=== PATIENT | male | born 1970 | race Caucasian/White ===

== ENCOUNTER 2020-10-26 14:33 | Emergency (ER) | payer OTHER, BC ==
--- NOTE | 2020-10-26 16:33 | ER Document Report ---
ED Medical Screen (RME) - General Chief Complaint: Eye Injury Stated Complaint: EYE BURN Time Seen by Provider: 10/26/20 16:29 Mode of Arrival: Ambulatory Information source: Patient Notes: 50-year-old male was sent over here from primary care after he had eye injury to the left eye. According to the note from the primary care's office he had dropped hot soldering chemicals and metal in his left eye about an hour before they saw him. I have called charge nurse and have sent him back to a room to be seen by another medical provider. I will order eye tray and tetracaine. I have greeted and performed a rapid initial assessment of this patient. A comprehensive ED assessment and evaluation of the patient, analysis of test results and completion of medical decision making process will be conducted by an additional ED providers. - Related Data Allergies/Adverse Reactions: iodine Allergy (Verified 10/26/20 16:30) Physical Exam - Vital signs Vitals: Temp Pulse Resp BP Pulse Ox 98.1 F 73 20 177/88 H 97 10/26/20 15:04 10/26/20 15:04 10/26/20 15:04 10/26/20 15:04 10/26/20 15:04 Course - Vital Signs Vital signs: Temp Pulse Resp BP Pulse Ox 98.1 F 73 20 177/88 H 97 10/26/20 15:04 10/26/20 15:04 10/26/20 15:04 10/26/20 15:04 10/26/20 15:04
[2020-10-26] MEDS ORDERED: TETRACAINE HCL 0.5% OPH SOLN 4 ML OS ONE (16:34)
[2020-10-26] MEDS ORDERED: PROMETHAZINE HCL INJ 25 MG/1 ML VIAL IM ONE (16:36)
[2020-10-26] MEDS ORDERED: HYDROMORPHONE HCL INJ/PF 2 MG/ML AMPULE IM ONE (16:36)
--- NOTE | 2020-10-26 16:54 | ER Document Report ---
ED Eye Complaint - General Chief Complaint: Eye Injury Stated Complaint: EYE BURN Time Seen by Provider: 10/26/20 16:29 Primary Care Provider: KADEEM ANDERSON DO [ACTIVE STAFF] - Follow up as needed Mode of Arrival: Ambulatory Information source: Patient, Relative - Notes: ED Medical Screen ([facility]) - General Chief Complaint: Eye Injury Stated Complaint: EYE BURN Time Seen by Provider: 10/26/20 16:29 Mode of Arrival: Ambulatory Information source: Patient Notes: 50-year-old male was sent over here from primary care after he had eye injury to the left eye. According to the note from the primary care's office he had dropped hot soldering chemicals and metal in his left eye about an hour before they saw him. I have called charge nurse and have sent him back to a room to be seen by another medical provider. I will order eye tray and tetracaine. MYNOTES 50-year-old male arrives by POV driven by his . Around 1230 he was working with copper pipe and flux and hot solder. This accidentally went into his left eye with severe 10 out of 10 pain. His drove him to the ER. I spoke with Kadeem Maciel at 1645 and he advises erythromycin ointment eyepatch pain and nausea medicine and he will see this patient in the office tomorrow morning. Upon arrival to trauma room 2 patient was given tetracaine to left eye with mild pain relief. He was also given right deltoid Dilaudid 1 Phenergan 25 IM. We will write for erythromycin ointment and [place] and Zofran for nausea pain and eye pain. 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 She has seen Dr. Anderson in the past. TRAVEL OUTSIDE OF THE [place] 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 Safety glasses worn: No Contact lenses worn: No Associated symptoms: Pain, Photophobia - Related Data Allergies/Adverse Reactions: iodine Allergy (Verified 10/26/20 16:30) Past Medical History - General Information source: Patient - Social History Smoking Status: Never Smoker Cigarette use (# per day): No Chew tobacco use (# tins/day): No Smoking Education Provided: No Frequency of alcohol use: None Drug Abuse: None Lives with: Family Family History: Reviewed & Not Pertinent Patient has suicidal ideation: No Patient has homicidal ideation: No Review of Systems - Review of Systems Constitutional: No symptoms reported EENT: See HPI, Eye pain Cardiovascular: No symptoms reported Respiratory: No symptoms reported Gastrointestinal: No symptoms reported Genitourinary: No symptoms reported Male Genitourinary: No symptoms reported Musculoskeletal: No symptoms reported Skin: No symptoms reported Hematologic/Lymphatic: No symptoms reported Neurological/Psychological: No symptoms reported Physical Exam - Vital signs Vitals: Temp Pulse Resp BP Pulse Ox 98.1 F 73 20 177/88 H 97 10/26/20 15:04 10/26/20 15:04 10/26/20 15:04 10/26/20 15:04 10/26/20 15:04 Interpretation: Normal - General General appearance: Appears well, Alert - HEENT Head: Normocephalic Eyes: Periorbital edema, Tears, Other - Left eye very injected and positive photophobia with tearing and large amount of pain. Conjunctiva: Injected - Left conjunctiva and sclera with injection. Patient received tetracaine and black light to observe a 3/4 to 1 cm diameter burn to the cornea around 5 6 and 7:00 iris area. Pupils: PERRL - Respiratory Respiratory status: No respiratory distress Chest status: Nontender Breath sounds: Normal Chest palpation: Normal - Cardiovascular Rhythm: Regular Heart sounds: Normal auscultation Murmur: No - Abdominal Inspection: Normal Distension: No distension Bowel sounds: Normal Tenderness: Nontender Organomegaly: No organomegaly - Rectal Prostate: Other - deferred - Genitourinary Scrotum: Other - Deferred - Back Back: Normal, Nontender - Extremities General upper extremity: Normal inspection, Nontender, Normal color, Normal ROM, Normal temperature General lower extremity: Normal inspection, Nontender, Normal color, Normal ROM, Normal temperature, Normal weight bearing. No: Judi's sign - Neurological Neuro grossly intact: Yes Cognition: Normal Orientation: AAOx4 [place] Coma Scale Eye Opening: Spontaneous [place] Coma Scale Verbal: Oriented [place] Coma Scale Motor: Obeys Commands [place] Coma Scale Total: 15 Speech: Normal Motor strength normal: LUE, RUE, LLE, RLE Sensory: Normal - Psychological Associated symptoms: Normal affect, Normal mood - Skin Skin Temperature: Warm Skin Moisture: Dry Skin Color: Normal Course - Vital Signs Vital signs: Temp Pulse Resp BP Pulse Ox 98.0 F 68 20 145/90 H 97 10/26/20 17:31 10/26/20 17:31 10/26/20 15:04 10/26/20 17:31 10/26/20 17:31 - Laboratory Results Critical Laboratory Results Reviewed: No Critical Results Attending or Supervising Physician who Reviewed Labs: AR LEIVA JR - Radiology Results Critical Radiology Results Reviewed: No Critical Results Attending or Supervising Physician who Reviewed Radiology: AR LEIVA JR Procedures - Eye Procedure Left Time completed: 16:45 Foreign body removal: Left Alcaine Drops Administered: Yes - Tetracaine multiple drops were applied to left eye. Fluorescein applied: Left Antibiotic Oinment/Drps Admin: Left eye Slit lamp used: No Notes: 10/26/20 17:04 This case was discussed with animal rides manager Dr. Anderson immediately after seeing patients I he advised erythromycin pain medicine nausea medicine and referral for tomorrow morning. Discharge - Discharge Clinical Impression: Burn of left cornea Qualifiers: Encounter type: initial encounter Qualified Code(s): T26.12XA - Burn of cornea and conjunctival sac, left eye, initial encounter Condition: Stable Disposition: HOME, SELF-CARE Additional Instructions: Follow-up tomorrow with Dr. Kadeem Anderson animal rides manager in his office. A phone number will be provided for you. Every 2 hours throughout the night while awake apply erythromycin ointment to left eye medial canthus. Also pain medicine and nausea medicine will be provided for you. Allow to give this rather than you take it yourself., Forms: Return to Work Referrals: KADEEM ANDERSON, DO [ACTIVE STAFF] - Follow up as needed
[2020-10-26] MEDS ORDERED: ERYTHROMYCIN 0.5% OPH OINT 1 GM UNIT DOSE OS ONE (16:58)
[2020-10-26] MEDS ORDERED: ONDANSETRON ODT 4 MG TAB (6 TAB/ER DISP) PO PRN (16:59)
[2020-10-26] MEDS ORDERED: HYDROCODONE/ACETAMINOPHEN 5-325 MG (6 TAB/ER DISP) PO PRN (16:59)
[2020-10-26 18:06] VITALS: BP 145/90
== END 2020-10-26 17:45 | disposition home or self-care (01) ==
LOC: ER 14:33
DX: T26.12XA Burn of cornea and conjunctival sac, left eye, initial encounter (principal); X19.XXXA Contact with other heat and hot substances, initial encounter; Y93.89 Activity, other specified; Y99.0 Civilian activity done for income or pay
CPT/HCPCS: 99284; 96372; J1170; J2550; J3490